=== PATIENT | female | born 1980 | race Caucasian/White ===

== ENCOUNTER 2021-09-14 07:25 | Outpatient (CLI) | payer BC, SELFPAY ==
--- NOTE | 2021-09-14 07:45 | CRLHL7_ITS ---
For Patients: As a result of the Cures Act, medical imaging exams and procedure reports are released immediately into your electronic medical record. You may view this report before your referring provider. If you have questions, please contact your health care provider. BILATERAL DIGITAL SCREENING MAMMOGRAM WITH COMPUTER-AIDED DETECTION WITH TOMOSYNTHESIS, 09/14/2021 CLINICAL HISTORY: Routine screening exam. COMPARISON: None. TECHNIQUE: Digital mammogram in CC and MLO projections including computer-aided detection (CAD) and tomosynthesis. BREAST COMPOSITION: The breasts are heterogeneously dense, which may obscure small masses. FINDINGS: RIGHT Breast: No suspicious findings. LEFT Breast: Focal asymmetric density upper-outer quadrant 4 cm from the nipple. IMPRESSION: LEFT breast asymmetry/mass. RECOMMENDATIONS: Additional mammographic views of the LEFT breast including 3D CC/MLO spot-compression. LEFT breast ultrasound may also be required. [facility] will contact the patient for follow-up. BI-RADS Category 0: Incomplete: Need Additional Imaging Evaluation. Dictated by Rupert Pak MD @ 09/14/2021 10:34:49 AM PT/Dictated by: Rupert Pak MD @ 09/14/2021 10:35:00 AM (Electronically Signed)
== END 2021-09-14 07:26 | disposition home or self-care (01) ==
LOC: MAMMO 07:26
PROVIDERS: PCP Physician Assistant Medical; Visit Provider Internal Medicine
DX: Z12.31 Encounter for screening mammogram for malignant neoplasm of breast (principal); N63.20 Unspecified lump in the left breast, unspecified quadrant
CPT/HCPCS: 77063; 77067

== ENCOUNTER 2021-09-19 10:24 | Outpatient (CLI) | payer BC, SELFPAY ==
--- NOTE | 2021-09-19 10:45 | CRLHL7_ITS ---
For Patients: As a result of the Cures Act, medical imaging exams and procedure reports are released immediately into your electronic medical record. You may view this report before your referring provider. If you have questions, please contact your health care provider. DIGITAL DIAGNOSTIC LEFT MAMMOGRAM WITH TOMOSYNTHESIS AND COMPUTER-AIDED DETECTION, 09/19/2021 CLINICAL HISTORY: LEFT breast mass/asymmetry. COMPARISON: 09/14/2021. TECHNIQUE: Digital LEFT mammogram in two projections. Tomosynthesis and CAD utilized. BREAST COMPOSITION: The breasts are heterogeneously dense, which may obscure small masses. FINDINGS: 3D spot CC/MLO mammograms LEFT breast. Decreased conspicuity of previously noted asymmetric density with normal underlying breast tissue. No architectural distortion. IMPRESSION: Normal additional views LEFT breast. Normal breast tissue is present. No evidence of malignancy. RECOMMENDATIONS: Annual BILATERAL screening mammography. BI-RADS Category 1: Negative Results and recommendations discussed with the patient. A lay language report of this examination will be provided to the patient. Dictated by Rupert Pak MD @ 09/19/2021 11:15:59 AM jj/Dictated by: Rupert Pak MD @ 09/19/2021 11:15:00 AM (Electronically Signed)
== END 2021-09-19 10:25 | disposition home or self-care (01) ==
PROVIDERS: PCP Physician Assistant Medical; Visit Provider Physician Assistant Medical
DX: N63.20 Unspecified lump in the left breast, unspecified quadrant (principal); R92.8 Other abnormal and inconclusive findings on diagnostic imaging of breast
CPT/HCPCS: 77065; G0279

== ENCOUNTER 2021-10-25 15:55 | Outpatient (CLI) | payer BC, SELFPAY | END 2021-10-25 15:56 | disposition home or self-care (01) | LOC: LKVREF 16:04 | PROVIDERS: PCP Physician Assistant Medical; Visit Provider Physician Assistant Medical | DX: R03.0 Elevated blood-pressure reading, without diagnosis of hypertension (principal) | CPT/HCPCS: 84443; 87086 ==

== ENCOUNTER 2023-05-05 09:13 | Outpatient (CLI) | payer BC, SELFPAY | END 2023-05-05 09:14 | disposition home or self-care (01) | PROVIDERS: PCP Physician Assistant Medical; Visit Provider Physician Assistant Medical | DX: R53.83 Other fatigue (principal); R03.0 Elevated blood-pressure reading, without diagnosis of hypertension; R52 Pain, unspecified | CPT/HCPCS: 80053; 82306; 82728; 84443; 86140 ==

== ENCOUNTER 2024-12-23 08:25 | Outpatient (CLI) | payer BC, SELFPAY ==
--- NOTE | 2024-12-23 08:45 | CRLHL7_ITS ---
For Patients: As a result of the Century Cures Act, medical imaging exams and procedure reports are released immediately into your electronic medical record. You may view this report before your referring provider. If you have questions, please contact your health care provider. INDICATION: BILATERAL SCREENING MAMMOGRAM, ASYMPTOMATIC 44 Y/O FEMALE COMPARISON: 09/19/2021, 09/14/2021 TECHNIQUE: Digital mammogram in CC and MLO projections including computer-aided detection (CAD) and tomosynthesis. BREAST COMPOSITION: There are scattered areas of fibroglandular density. FINDINGS: No suspicious findings. ASSESSMENT: BI-RADS 1 Negative RECOMMENDATION: Annual screening mammogram. A lay language report of this examination will be provided to the patient. Dictated by: Linda Penny MD @ 12/25/2024 07:33:54 (Electronically Signed)
== END 2024-12-23 08:26 | disposition home or self-care (01) ==
LOC: MAMMO 08:26
PROVIDERS: PCP Physician Assistant Medical; Visit Provider Physician Assistant Medical
DX: Z12.31 Encounter for screening mammogram for malignant neoplasm of breast (principal)
CPT/HCPCS: 77063; 77067

== ENCOUNTER 2025-02-25 09:08 | Outpatient (CLI) | payer BC, SELFPAY | END 2025-02-25 09:09 | disposition home or self-care (01) | PROVIDERS: PCP Physician Assistant Medical; Visit Provider Physician Assistant Medical | DX: N20.0 Calculus of kidney (principal); L65.9 Nonscarring hair loss, unspecified; R41.89 Other symptoms and signs involving cognitive functions and awareness | CPT/HCPCS: 80053; 82306; 82397; 82533; 82607; 82670; 82728; 83970; 84100; 84144; 84207; 84443; 84630; 86376 ==